=== PATIENT | female | born 1930 | race Caucasian/White ===

== ENCOUNTER → 2017-05-31 | Outpatient (CLI) | payer MEDICARE, BC ==
[~2017-05-31] MED LIST: AMIO200T42 PO; AMLO5TAB2 PO; APIX5TAB PO; CARV25TA12 PO; CARV6.252 PO; CLON0.1T PO; DIGO250T PO; HYDR-3237 PO; RIVA15TA PO; TELM40TA PO
== END | disposition home or self-care (01) ==
LOC: CVU 06:45
PROVIDERS: ATTEND Nurse Practitioner Family
DX: I08.1 Rheumatic disorders of both mitral and tricuspid valves (principal); I10 Essential (primary) hypertension; I48.91 Unspecified atrial fibrillation; Z95.0 Presence of cardiac pacemaker
CPT/HCPCS: 93306

== ENCOUNTER 2018-09-22 10:56 | Emergency (ER) | payer MEDICARE, BC ==
[~2018-09-22] VITALS: Ht 170.2 cm; Wt 79.2 kg
[2018-09-22 12:29] VITALS: BP 156/77
== END 2018-09-22 12:32 | disposition home or self-care (01) ==
LOC: ED 12:20
DX: S63.521A Sprain of radiocarpal joint of right wrist, initial encounter (principal); S63.641A Sprain of metacarpophalangeal joint of right thumb, initial encounter; G89.11 Acute pain due to trauma; W01.0XXA Fall on same level from slipping, tripping and stumbling without subsequent striking against object, initial encounter; Y93.01 Activity, walking, marching and hiking; Y92.098 Other place in other non-institutional residence as the place of occurrence of the external cause; Y99.8 Other external cause status
CPT/HCPCS: 29125; 99283

== ENCOUNTER → 2018-12-29 | Outpatient (CLI) | payer MEDICARE, BC ==
[~2018-12-29] MED LIST changes: +AMLO-150 PO; -AMLO5TAB2 PO; -CLON0.1T PO; +CLON0.1T22 PO; +DILT120C48 PO; +DOCU-131 PO; +FURO20TA3 PO; +LOSA50TA14 PO; +LOSA50TA2 PO; +METO-95 PO; +METO200T47 PO; +REGADENOSON 0.4 MG/5 ML SYRINGE ONE; +SOTA80TA18 PO
== END | disposition home or self-care (01) ==
LOC: CFH 10:22
PROVIDERS: ATTEND Internal Medicine Cardiovascular Disease
DX: I08.0 Rheumatic disorders of both mitral and aortic valves (principal); I42.9 Cardiomyopathy, unspecified; I51.7 Cardiomegaly
CPT/HCPCS: 78452; 93017; 93306; A9502; J2785

== ENCOUNTER → 2019-04-17 | Outpatient (CLI) | payer MEDICARE, BC ==
[~2019-04-17] MED LIST changes: -DIGO250T PO; +DIGO250T3 PO; -REGADENOSON 0.4 MG/5 ML SYRINGE ONE
== END | disposition home or self-care (01) ==
LOC: CFH 10:52
PROVIDERS: ATTEND Internal Medicine
DX: J84.10 Pulmonary fibrosis, unspecified (principal); R91.8 Other nonspecific abnormal finding of lung field; J44.9 Chronic obstructive pulmonary disease, unspecified
CPT/HCPCS: 71250

== ENCOUNTER 2020-03-01 09:40 | Outpatient (CLI) | payer MEDICARE, BC | END 2020-03-01 23:59 | disposition home or self-care (01) | LOC: CFH 09:40 | PROVIDERS: ATTEND Internal Medicine Cardiovascular Disease | DX: I08.8 Other rheumatic multiple valve diseases (principal); I27.20 Pulmonary hypertension, unspecified; I42.9 Cardiomyopathy, unspecified; I48.0 Paroxysmal atrial fibrillation | CPT/HCPCS: 93306 ==

== ENCOUNTER → 2020-04-04 | Outpatient (CLI) | payer MEDICARE, BC | END | disposition home or self-care (01) | LOC: CFH 11:19 | PROVIDERS: ATTEND Internal Medicine Cardiovascular Disease | DX: I11.9 Hypertensive heart disease without heart failure (principal); I34.0 Nonrheumatic mitral (valve) insufficiency; I48.0 Paroxysmal atrial fibrillation; I42.9 Cardiomyopathy, unspecified; I49.5 Sick sinus syndrome; R00.0 Tachycardia, unspecified; Z79.01 Long term (current) use of anticoagulants; Z95.0 Presence of cardiac pacemaker | CPT/HCPCS: 71046 ==

== ENCOUNTER → 2020-05-01 | Outpatient (CLI) | payer MEDICARE, BC | END | disposition home or self-care (01) | LOC: CFH 10:58 | PROVIDERS: ATTEND Internal Medicine | DX: R91.8 Other nonspecific abnormal finding of lung field (principal); J84.10 Pulmonary fibrosis, unspecified; M19.012 Primary osteoarthritis, left shoulder | CPT/HCPCS: 71250 ==